=== PATIENT | female | born 1950 | race Caucasian/White ===

== ENCOUNTER 2018-06-09 07:46 | Inpatient (IN) ==
[2018-06-05 10:22] LABS: Appearance,Urine CLEAR; Bilirubin,Urine NEG (NEG); Color,Urine STRAW; Glucose,Urine (UA) NEGATIVE (NEG); Leukocyte Esterase,Urine NEG /uL (NEG); Protein,Urine NEG (NEG); Specific Gravity,Urine 1.003 (1.000-1.035); Urine Blood NEG mg/dL (<0.03); Urobilinogen,Urine NEG (NEG)
[2018-06-05 10:53] LABS: Basophils # (Auto) 0 K/mcL (0.0-0.3); Basophils % (Auto) 0.5 % (0.0-2.0); Eosinophils # (Auto) 0.2 K/mcL (0.0-0.7); Eosinophils % (Auto) 2.9 % (0.0-7.0); Granulocytes % (Auto) 60.3 % (38.0-78.0); Lymphocytes # (Auto) 1.8 K/mcL (1.5-4.8); Lymphocytes % (Auto) 29.5 % (15.5-49.0); Mean Cell Volume 81.4 fL (80.0-100.0); Mean Corpuscular HGB Conc 33.6 g/dL (31.0-36.0); Mean Corpuscular Hemoglobin 27.4 pg (26.0-34.0); Monocytes # (Auto) 0.4 K/mcL (0.1-0.9); Monocytes % (Auto) 6.8 % (1.0-12.0); Platelet Count 222 K/mcL (140-440); RBC 4.81 M/mcL (4.00-5.20); Red Cell Distribution Width 15.6 % (11.5-14.5)
[2018-06-05 11:44] LABS: Blood Urea Nitrogen 14 mg/dl (8-23)
[~2018-06-09 07:46] MED LIST: 0.9 % SODIUM CHLORIDE 9 ML, KETOROLAC 30 MG, ROPIVACAINE HCL/PF 49.5 ML, EPINEPHrine 0.... IJ SCH; ACETAMINOPHEN 500 MG TABLET PO SCH; CELECOXIB 200 MG CAPSULE PO SCH; PREGABALIN 75 MG CAPSULE PO SCH; ceFAZolin 1 GM VIAL IV SCH; oxyCODONE 10 MG TAB.ER.12H PO SCH
[2018-06-09] MEDS ORDERED: PHENYLEPHRINE 10 MG/ML VIAL IV ONE (11:40)
[2018-06-09] MEDS ORDERED: LIDOCAINE HCL/PF 100 MG/5 ML SYRINGE IV ONE (11:40)
[2018-06-09] MEDS ORDERED: TRANEXAMIC ACID 1,000 MG/10 ML VIAL IV ONE ×2 (11:40→14:00)
[2018-06-09] MEDS ORDERED: GLYCOPYRROLATE 0.2 MG/ML VIAL IV ONE (11:40)
[2018-06-09] MEDS ORDERED: PROPOFOL 200 MG/20 ML VIAL IV ONE (11:40)
[2018-06-09] MEDS ORDERED: KETAMINE 100 MG/ML ML IV ONE (11:40)
[2018-06-09] MEDS ORDERED: MIDAZOLAM 2 MG/2 ML VIAL IV ONE (11:40)
[2018-06-09] MEDS ORDERED: ONDANSETRON 4 MG/2 ML VIAL IV ONE (11:40)
[2018-06-09] MEDS ORDERED: GENTAMICIN SULFATE 800 MG/20 ML VIAL IR ONE (12:06)
[2018-06-09] MEDS ORDERED: IPRATROPIUM/ALBUTEROL 3 ML AMPUL.NEB NEB PRN (13:05)
[2018-06-09] MEDS ORDERED: MEPERIDINE 25 MG/ML SYRINGE IV PRN (13:05)
[2018-06-09] MEDS ORDERED: fentaNYL 100 MCG/2 ML VIAL IV PRN (13:05)
[2018-06-09] MEDS ORDERED: METHOCARBAMOL 1,000 MG/10 ML VIAL IV PRN (13:05)
[2018-06-09] MEDS ORDERED: ONDANSETRON 4 MG/2 ML VIAL IV PRN ×2 (13:05→14:00)
--- NOTE | 2018-06-09 13:06 | XRay Report ---
CLINICAL INFORMATION: LEFT TOTAL HIP COMPARISON: None. FINDINGS: Femoral stem template is anatomically aligned. The prosthetic acetabulum shows possible slight excess of anteversion. No osseous abnormality. 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 Interpreted and Authenticated by: Cruz Johnson 06/09/18
[2018-06-09] MEDS ORDERED: LACTATED RINGERS 1,000 ML IV SCH (13:15)
--- NOTE | 2018-06-09 13:29 | Operative Note ---
DATE OF OPERATION: 06/09/2018 PREOPERATIVE DIAGNOSIS: Left hip degenerative arthritis, severe. POSTOPERATIVE DIAGNOSIS: Left knee degenerative arthritis, severe. PROCEDURE: Left total hip arthroplasty. SURGEON: Demetrius Olivier MD ALL SOURCE COLLECTION MANAGER: Jose A Priest PA-C. ANESTHESIA: General LMA anesthesia. COMPLICATIONS: None. ESTIMATED BLOOD LOSS: About 100 mL IMPLANTS: Size 5 cemented stem with a +5 neck length, ceramic 36 mm head with a 48 mm cup at 20 degrees of anteversion and 40 degrees of inclination, a 36 mm screw, standard poly liner. DESCRIPTION OF PROCEDURE: The patient was brought to the operating room and put to sleep with general LMA anesthesia. Once asleep, the patient had the left hip sterilely prepped and draped in the usual sterile fashion in right lateral position with Cuddy positioner. Once sterilely prepped and draped, we confirmed the operative site with a timeout by consent form, x-rays and initials. We placed Ioban over the skin and made an incision posteriorly. A superior approach was performed. The hip and fascia were identified. We then placed a Charnley retractor and dislocated the hip after releasing the superior capsule. We then made the neck cut at 32 mm from the center of hip rotation and then subluxed the hip anteriorly, reamed up the cup to a size 48, implanted a 48 cup with a 36 mm screw and a standard poly. The cup was placed in 20 degrees of anteversion and 40 degrees of inclination. Once this was confirmed, we then irrigated thoroughly and then prepared the femur. We broached up to the size 4 stem. We then trialed a standard poly. We took an x-ray showing leg length to be in near equal. At this point, we then calcar reamed, cemented into place a size 5 stem and then keeping the hip and the stem rotated about 15 to 20 degrees of anteversion. Once done, we irrigated thoroughly and trialed the standard 2+ and 5+. The 5+ seemed to be the most stable. Leg lengths were still symmetric and equal when measured on the table. We irrigated thoroughly, reduced the hip and repaired the capsule with #2 Ethibond, closed the fascial layer with #1 Stratafix and closed the skin with #1 Stratafix and 2-0 Vicryl and adhesive closure, standard closure with a stitchless adhesive was placed. Sterile bandage applied. The patient tolerated this well. Blood loss was about 100 mL. RBSusana:nia Job ID: [id number] Doc ID: [id number] Demertius Olivier MD
--- NOTE | 2018-06-09 13:47 | Brief Operative Note ---
Date of procedure: 06/09/18 Pre-op diagnosis: left hip djd Post-op diagnosis: same Procedure: left maria t Grafts/Implants: Yes Anesthesia: GETA Complications: none Surgeon: Demetrius Olivier Stretcher Leveler Operator: PCP No Estimated blood loss (cc): 100 Specimens Removed/Pathology: none sent Condition: stable Disposition: PACU
[2018-06-09] MEDS ORDERED: FLEETS ADULT ENEMA PR PRN (14:00)
[2018-06-09] MEDS ORDERED: BISACODYL 10 MG SUPP.RECT PR PRN (14:00)
[2018-06-09] MEDS ORDERED: BENZOCAINE/MENTHOL 1 LOZENGE PO PRN (14:00)
[2018-06-09] MEDS ORDERED: KETOROLAC 15 MG/ML VIAL IV PRN (14:00)
[2018-06-09] MEDS ORDERED: TEMAZEPAM 15 MG CAPSULE PO PRN (14:00)
[2018-06-09] MEDS ORDERED: MAGNESIUM HYDROXIDE 30 ML ORAL.SUSP PO PRN (14:00)
[2018-06-09] MEDS ORDERED: ACETAMINOPHEN 325 MG TABLET PO PRN (14:00)
[2018-06-09] MEDS ORDERED: POLYETHYLENE GLYCOL 3350 17 GM PACKET PO PRN (14:00)
[2018-06-09] MEDS ORDERED: HYDROmorphone 2 MG/ML VIAL IV PRN (14:00)
--- NOTE | 2018-06-09 14:51 | XRay Report ---
CLINICAL INFORMATION: post-op verification COMPARISON: None. FINDINGS: Left total hip prosthesis alignment is near-anatomic. Right hip and both SI joints show mild degenerative change. There are no osseous abnormalities. Soft tissue swelling gas seen in the surgical site IMPRESSION: Negative Interpreted and Authenticated by: Cruz Johnson 06/09/18
[2018-06-09] MEDS: 0.9 % SODIUM CHLORIDE 10 ML SYRINGE IV SCH ×2 (15:06→20:13)
[2018-06-09] MEDS: 0.45 % SODIUM CHLORIDE 1,000 ML IV SCH (15:31)
[2018-06-09] MEDS: HYDROcodone/APAP 10/325MG TABLET PO PRN (20:12)
[2018-06-09] MEDS: DOCUSATE SODIUM 100 MG CAPSULE PO SCH (20:12)
[2018-06-09] MEDS: ceFAZolin 1 GM VIAL IV SCH (20:13)
[2018-06-09] MEDS: ASPIRIN 325 MG ENTERIC COATED TABLET PO SCH (20:13)
[2018-06-09] MEDS: DICYCLOMINE 20 MG TABLET PO SCH (20:13)
[2018-06-09] MEDS ORDERED: SENNOSIDES 1 TABLET PO SCH (21:00)
[2018-06-09] MEDS ORDERED: AMITRIPTYLINE 25 MG TABLET PO SCH (21:00)
[2018-06-10] MEDS: HYDROcodone/APAP 10/325MG TABLET PO PRN ×2 (00:05→08:55)
[2018-06-10] MEDS: 0.45 % SODIUM CHLORIDE 1,000 ML IV SCH ×2 (01:23→10:51)
[2018-06-10] MEDS: ceFAZolin 1 GM VIAL IV SCH (05:09)
[2018-06-10] MEDS: 0.9 % SODIUM CHLORIDE 10 ML SYRINGE IV SCH (06:49)
--- NOTE | 2018-06-10 07:16 | Orthopedic Progress Note ---
Subjective Patient information: Note initiated : 06/10/18 at 7:15 am Service Date, if different from initiated Date: [] Patient: Marium Gomez 67 y/o F admitted on 06/09/18 for Left Total Hip Arthroplasty-Posterior. Chief Complaint: Pt is stable this morning on post operative day 1 without any significant concerns or complaints. Patients vital signs have remained stable. Patients dressing is dry and is grossly intact from a neurovascular and motor standpoint. Patients 10 point ROS is otherwise negative. [] Objective Vital signs: Vital Signs Temp Pulse Resp BP BP Pulse Ox 06/10/18 06:00 93 06/10/18 04:00 97.6 F 65 12 88/46 94 06/10/18 00:00 98.0 F 91 H 12 94/57 92 06/09/18 20:00 97.9 F 85 12 115/70 94 06/09/18 16:40 129/74 94 06/09/18 16:15 95 06/09/18 16:12 117/75 91 06/09/18 15:57 123/75 95 06/09/18 15:42 103/66 96 06/09/18 15:27 109/63 97 06/09/18 15:12 94/61 95 06/09/18 15:07 74 14 97 06/09/18 14:57 88/55 95 06/09/18 14:32 97.1 F 75 20 94/60 97 06/09/18 14:22 97.5 F 74 16 93/55 98 06/09/18 14:11 76 16 93/50 99 06/09/18 13:56 76 18 89/60 100 06/09/18 13:41 87 17 103/56 100 06/09/18 13:36 85 16 101/88 100 06/09/18 13:31 89 20 102/61 100 06/09/18 13:26 97.1 F 101 H 21 114/51 96 06/09/18 08:15 85 97 06/09/18 08:00 98.3 F 18 117/72 97 Intake and Output 06/09/18 06/10/18 06/10/18 21:59 05:59 13:59 Intake Total 2980 / 2980 1887 / 1887 Output Total 885 / 885 1150 / 1150 Balance 2095 / 2095 737 / 737 Intake: IV 987 / 987 Sodium Chloride 0.45% 1,000 ml 987 / 987 @ 100 mls/hr IV .Q10H NEDRA Rx#: [id number] Oral 480 / 480 900 / 900 IV - Manual Only 2500 / 2500 Output: Void Amount 800 / 800 1150 / 1150 Estimated Blood Loss 85 / 85 Other: Meal Dinner Percent of Meal Consumed 100% Feeding Ability Independent Urine Appearance Clear Clear Urine Color Bright Yellow Straw Urine Odor Normal Normal # Voids 1 1 Weight 197 lb Intake & Output: Intake & Output 06/09/18 06/10/18 06/10/18 21:59 05:59 13:59 Intake Total 2980 / 2980 1887 / 1887 Output Total 885 / 885 1150 / 1150 Balance 2094 737 / 737 Weight 197 lb Intake: IV 987 / 987 Sodium Chloride 0.45% 1,000 ml 987 / 987 @ 100 mls/hr IV .Q10H NEDRA Rx#: [id number] Oral 480 / 480 900 / 900 IV - Manual Only 2500 / 2500 Output: Void Amount 800 / 800 1150 / 1150 Estimated Blood Loss 85 / 85 Other: Meal Dinner Percent of Meal Consumed 100% Feeding Ability Independent Urine Appearance Clear Clear Urine Color Bright Yellow Straw Urine Odor Normal Normal # Voids 1 1 Incision: Yes healing Incision clean and dry: Yes Dressing: Yes clean Weight bearing status: full Neurological exam IM: Yes motor sensory intact, Yes neurovascular intact Extremities exam IM: Yes normal inspection, Yes Foot pink and warm, Yes neurovascular intact - Labs CBC & BMP: 06/10/18 04:00 06/05/18 08:33 Labs: 06/10/18 06/05/18 04:00 08:33 Hgb 13.2 Hct 28.0 L 39.2 Assessment and Plan (1) Hx of total hip arthroplasty The patient has been educated regarding dressing care, Physical Therapy recommendations, home exercises, restrictions, and follow up appointments. The patient has had all necessary DME prescribed. The patient has remained relatively stable during their hospital course. Leave Dermabond patch intact until followup Status: Acute
[2018-06-10] MEDS ORDERED: OMEPRAZOLE 20 MG CAPSULE PO SCH (07:30)
--- NOTE | 2018-06-10 08:15 | Discharge Summary ---
Ortho Discharge - [facility] - Patient Instructions Diet: Regular Diet Activity: activity as tolerated, weight bearing as tolerated Total Hip Protocol: Follow activity instructions as provided by Physical Therapy. Dressing Care: May shower in 2 days, Aquacel Ag - leave on for 5 days - Follow Up Plan Follow Up Appointments: Jose A Priest PA-C [Physician Teacher Learning Disabled] - 06/24/18 10:10 am Disposition: Home, Self-Care Prognosis: Good Rehab Potential: Good I certify that the patient requires SNF services: No Overall status at discharge: patient is progressing back to baseline - Orders For Discharge Prescriptions: HYDROcodone/APAP 10/325MG [[place] 10-325Mg] 10 - 20 mg PO Q4HP PRN #60 tab PRN Reason: Pain Level 3-6 Additional Discharge Orders: Physical Therapy at Discharge - [facility] Location: None Selected Toilet Riser Discharge Order Location: None Selected Walker Location: None Selected
[2018-06-10] MEDS: DICYCLOMINE 20 MG TABLET PO SCH (08:53)
[2018-06-10] MEDS: DOCUSATE SODIUM 100 MG CAPSULE PO SCH (08:53)
[2018-06-10] MEDS: ASPIRIN 325 MG ENTERIC COATED TABLET PO SCH (08:54)
[2018-06-10] MEDS ORDERED: MAGNESIUM OXIDE 400 MG TABLET PO SCH (09:00)
[2018-06-10] MEDS ORDERED: VITAMIN D3 1,000 UNIT TABLET PO SCH (09:00)
[2018-06-10] MEDS ORDERED: LYSINE HCL 500 MG PO SCH (09:00)
[2018-06-10] MEDS ORDERED: CALCIUM (OYSTER SHELL) 500 MG TABLET PO SCH (09:00)
== END 2018-06-10 13:35 | disposition home or self-care (01) | DRG 470 ==
LOC: MEDSUR 07:46
PROVIDERS: ADMIT Orthopaedic Surgery; ATTEND Orthopaedic Surgery
CPT/HCPCS: 62322; 73501; 73502; 97161; C1713; C1776; J0690; J1580; J1885; J2001; J2250; J2370; J2405; J7120